=== PATIENT | female | born 1955 | race Caucasian/White ===

== ENCOUNTER 2018-10-04 13:33 | Inpatient (IN) | payer OTHER, MEDICARE ==
[2018-10-04] MEDS ORDERED: MAGNESIUM HYDROXIDE 30 ML UDCUP PO PRN (14:26)
[2018-10-04] MEDS ORDERED: MAG HYDROX/AL HYDROX/SIMETH 30 ML UDCUP PO PRN (14:26)
[2018-10-04] MEDS ORDERED: SUMAtriptan 25 MG TAB PO PRN (14:48)
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
[2018-10-04] MEDS ORDERED: BISACODYL 10 MG SUPP PR PRN (16:48)
[2018-10-04] MEDS ORDERED: MAGNESIUM CITRATE 300 ML BOTTLE PO ONE (16:48)
--- NOTE | 2018-10-04 18:18 | GCON ---
[f rep st] CONSULTATION DATE OF CONSULTATION: 10/04/2018 REASON FOR CONSULTATION: I was asked by Dr. Barahnoa to see the patient in regard to her medical problems. HISTORY OF PRESENT ILLNESS: This is a 62-year-old female with longstanding major depressive disorder, who underwent numerous social stressors over the last 4 months including losing her brother as well as her losing her dog to seizures who presents for ECT. She went to see her outpatient psychiatrist who referred her to see Dr. Barahona. She was admitted to the behavioral health unit today for this. In terms of her medical issues, she tells me that she has a history of hypertension which is usually reasonably well controlled on losartan. It does tend to be somewhat labile at times. Normally her blood pressure is around 120 or 130/80ish. She has a history of migraines for which she rarely takes Imitrex. This has not been a problem recently. I have also noted in her chart that she has hypercalcemia with a normal PTH in the past. She has complained of palpitations which started recently, these have been attributed to depression /anxiety. She has never had an event or Holter monitor. She will occasionally get episodes of hypoglycemia for which she eats to resolve these. She has never fainted. She has osteopenia, she is on Evista. She also suffers from constipation. She is currently quite constipated so much so that she is not able to eat due to nausea. She will often take a Dulcolax suppository at home for this. Her review of systems other than constipation is negative including no chest pain, shortness of breath. No exertional angina. No rash and no dysuria. PAST MEDICAL/SURGICAL HISTORY: 1. Hypertension. 2. Migraines. 3. Palpitations. 4. Depression. 5. Hypoglycemia. 6. Osteopenia. 7. Constipation. MEDICATIONS: Are listed in the medication reconciliation. This has been reviewed. ALLERGIES: Atropine,phenobarbital, scopolamine. FAMILY HISTORY: She has multiple family members with depression as well as suicide. SOCIAL HISTORY: She does not drink or smoke. She is . REVIEW OF SYSTEMS: A 10-point review of systems is negative except per HPI. PHYSICAL EXAM: VITAL SIGNS: Blood pressure 163/71, heart rate 74, respiration rate 14, saturating 94% on room air. Temperature 37. GENERAL: The patient is a pleasant female who is resting comfortably, in no acute distress. HEENT: Shows her to be normocephalic, atraumatic. CARDIOVASCULAR: Regular rate and rhythm. There are no murmurs, rubs, or gallops. No elevated JVD. No lower extremity edema. PULMONARY: Shows her to be breathing comfortably. Her lungs are clear to auscultation bilaterally. ABDOMEN: Exam shows normal bowel sounds. She is soft, nontender, nondistended. SKIN: No rash. : No Quinn. NEUROLOGIC: Shows her to be alert and oriented x3. Moving all extremities. PSYCHIATRIC: Exam shows normal mood and affect. LABS: There have been numerous labs ordered. However, these are pending at the time of my dictation. DATA: 1. I personally viewed and interpreted her EKG. This shows sinus rhythm. There are no ST changes. This is a normal EKG. 2. I reviewed her chart including her psychiatric assessment by Dr. Barahona. Notable for planning ECT. IMPRESSION AND PLAN: 1. Constipation: This is a long-term problem for her. I have given her multiple options including magnesium citrate, Fleet's enema as well as bisacodyl suppository. She may take these as needed. 2. Hypertension. Slightly elevated on presentation likely due to increased anxiety. Will continue her Cozaar while she is here. I would not adjust medications at this time unless she has very persistently elevated blood pressures. Thank you for involving Hospital Medicine in the care of this patient. If her labs come back abnormal, please alert the on-call physician. Otherwise, we will sign off and please re-consult as necessary. /[id number]/MODL MTDD
[2018-10-04] MEDS: DOCUSATE SODIUM 100 MG CAP PO SCH (20:08)
[2018-10-04] MEDS ORDERED: traMADol 50 MG TAB PO SCH (21:00)
[2018-10-04] MEDS: traZODone 50 MG TAB PO SCH (22:06)
[2018-10-04] MEDS: BISACODYL 5 MG EC TAB PO SCH (22:14)
--- NOTE | 2018-10-05 07:58 | ASMTBHMTP ---
Master Treatment Plan Master Treatment Plan Answers: Depressed Mood with for: Suicidal Ideation Date: 10/04/2018 Diagnosis on Admission: Major Depressive Disorder, Recurrent, Severe Expected length of stay: 3-5 days Reason for admission: Notes: Per Report: Patient is a 62 yoa female who was brought in today by her on referral of her psychiatrist (Atul Flores [phone]) who has recommended ECT for this patient. She lives in [place], [place] with and is retired. She is struggling to complete basic chores and ADLS at this point given her depressive state. 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 She has been hospitalized psychiatrically at least twice prior to this in 2006 and in the . She has had ECT twice before in 1993, and 2006, with good results. Patient's stated presenting problems: Notes: Treatment for severe depression Patient's goals for treatment: Notes: to get out of this depressive state and not think about dying all the time Patient's strengths: Notes: I have several Identify supports outside of hospital: Notes: family and friends, living in [place], [place] Discharge criteria: Notes: Suicidal ideation will resolve and patient will have a plan to safely manage recurrent suicidal ideation. Initial disposition plan/considerations: Notes: Return to [facility] after ECT tx. Master Treatment Plan Required Signatures Psychiatrist signature: Answers: Psychiatrist: RN on-shift signature: Answers: RN: Patient signature: Answers: Patient: Date Signed: 10/05/2018 07:57 AM Electronically Signed By:Arjun Gan
[2018-10-05 08:13] LABS: PLATELET COUNT 248 10^3/uL (150-400)
[2018-10-05] MEDS: LOSARTAN POTASSIUM 50 MG TAB PO SCH (08:42)
[2018-10-05] MEDS: ESCITALOPRAM OXALATE 10 MG TAB PO SCH (08:42)
[2018-10-05] MEDS: RALOXIFENE HCL 60 MG TAB PO SCH (08:42)
[2018-10-05] MEDS: DOCUSATE SODIUM 100 MG CAP PO SCH ×3 (11:32→21:30)
[2018-10-05] MEDS: PSYLLIUM METAMUCIL 1 PKT PO SCH ×2 (11:32→15:05)
--- NOTE | 2018-10-05 11:35 | SOAPPROG ---
SOAP Progress Note Assessment/Plan: Assessment: MDD with psychotic and melancholic fxs, HTN Plan: Read and appreciate consult of Dr Mireles, reviewed labs and EKG which Dr Mireles stated was normal to patient (not yet read). Reviewed with Pt further psychoed re ECT. She still wishes to start SHAREE and do bilateral, understanding the greater liability for cognitive impact. Pt describes further details of TC c/w somatic delusions (ie, blood draw infected her). She feels mentally "slowed down" and this is reflected in overt objectively noted vegatiative signs. Still c/o of constipation with no relief from Mag Citrate. Will order fleets enema. No significant issues from labs except mildly elevated LFTs. Will check FS pre ECT. encourage gatarode up to two hours prior to ECT and use D5NS if needed given her h/o of hypoglyemia 10/05/18 11:29 Objective: Vital Signs Temp Pulse Resp BP Pulse Ox 36.7 C 81 14 145/73 H 94 10/05/18 06:00 10/05/18 06:00 10/04/18 15:10 10/05/18 08:42 10/05/18 06:00 Laboratory Results 10/05/18 06:30 10/05/18 06:30 Laboratory Tests 10/05/18 10/05/18 06:30 06:30 Calcium 10.2 AST 50 H ALT 108 H Vitamin B12 Pending Vit D 1,25-Dihydroxy Pending Folate Pending TSH 0.911 MTHFR C677T Mutation Pending ICD10 Worksheet Patient Problems: Problems Problem Status Onset Major depression, melancholic type Acute - ICD10 Problem Qualifiers (1) Major depression, melancholic type
[2018-10-05] MEDS ORDERED: BISACODYL 10 MG SUPP PR ONE (11:36)
[2018-10-05] MEDS: traZODone 50 MG TAB PO PRN (13:40)
--- NOTE | 2018-10-05 14:47 | CPEKG ---
Test Reason : OPEN Blood Pressure : / mmHG Vent. Rate : 075 BPM Atrial Rate : 075 BPM P-R Int : 172 ms QRS Dur : 080 ms QT Int : 392 ms P-R-T Axes : 070 061 038 degrees QTc Int : 438 ms SINUS RHYTHM Confirmed by Armando Bernardo ([id number]) on 10/05/2018 2:46:58 PM Referred By: Lex Barahona Confirmed By:Armando Bernardo
[2018-10-05] MEDS: traZODone 50 MG TAB PO SCH (21:30)
[2018-10-06] MEDS ORDERED: CITRIC ACID/SODIUM CITRATE 30 ML UDCUP PO PRN (04:00)
[2018-10-06] MEDS ORDERED: NS 1,000 ML IV PRN (04:00)
[2018-10-06] MEDS ORDERED: ONDANSETRON DISINTEGRATING 4 MG TAB PO PRN (04:00)
[2018-10-06] MEDS: LOSARTAN POTASSIUM 50 MG TAB PO SCH (09:07)
--- NOTE | 2018-10-06 11:58 | PDHPUP ---
History & Physical Update H&P update statement: This history and physical update is based on an assessment of the patient which was completed after admission or registration (within 24 hours), but prior to the surgery/procedure. H&P update: H&P reviewed & patient examined, no change in patient's condition since H&P completed
[2018-10-06] MEDS ORDERED: ONDANSETRON DISINTEGRATING 4 MG TAB ONE (12:00)
[2018-10-06] MEDS ORDERED: CITRIC ACID/SODIUM CITRATE 30 ML UDCUP ONE (12:00)
[2018-10-06] MEDS ORDERED: LR 1,000 ML IV SCH (12:00)
--- NOTE | 2018-10-06 12:00 | PDANEPAE ---
ECT Pre Anesthetic Evaluation Allergies/Adverse Reactions: atropine [From ] Allergy (Verified 10/04/18 13:47) hyoscyamine [From ] Allergy (Verified 10/04/18 13:47) phenobarbital [From ] Allergy (Verified 10/04/18 13:47) scopolamine [From ] Allergy (Verified 10/04/18 13:47) Patient ID confirmed: Yes H&P reviewed: Yes Pre-anesthetic history reviewed: Yes Heart: regular rate and rhythym Lungs: no respiratory distress Mallampati Score: Class 1 ASA Status: II Home Medications: Medication Instructions Recorded B Cmplx 4/Vit D3/C/Folic/Zinc 1 each PO DAILY 10/04/18 [Vital-D Rx Tablet] Bisacodyl [Bisacodyl (*)] 5 mg PO Q48H 10/04/18 Escitalopram Oxalate [Lexapro] 10 mg PO DAILY 10/04/18 Losartan Potassium [Cozaar 50 mg 50 mg PO DAILY 10/04/18 (*)] Raloxifene HCl [Evista 60mg (RX)] 60 mg PO DAILY 10/04/18 Sumatriptan Succinate [Imitrex] 50 mg PO PRN PRN 10/04/18 traZODone [traZODONE 50MG (*)] 25 mg PO QID PRN 10/04/18 traZODone [traZODONE 50MG (*)] 75 mg PO HS 10/04/18 Medication review: completed Patient interviewed: Yes Patient examined: Yes Anesthetic plan discussed with patient: Yes Anesthetic risks discussed with patient: Yes ECT Pre-Anesthetic History - Height & Weight Height: 165.1 cm Weight: 55.338 kg BMI: 20.30 - Anesthesia History Hx Anesthesia Complications (with details): None Family Hx Anesthesia Complications: None - Medications In the Past 6 Months the Patient Has Taken: Tranquilizers, Blood Pressure Medication - Tobacco/Alcohol/Drug Use Smoking Status: Never smoked Hx Drug/Substance Abuse: No Alcohol Use: No - Prior Surgeries/Hospitalizations Prior Surgeries: None Prior Medical Hospitalizations: None - Pulmonary History ECT Hx Asthma: No Hx Abnormal Chest X-Ray: No Hx Oxygen in Use at Home: No - Cardiovascular History Hx Hypertension: Yes Currently Uses Hypertension Medication: Yes Hx Arrhythmias: No Hx Palpitations: Yes Hx Chest Pain: No Hx Coronary Artery / Peripheral Vascular Disease: No Hx Blood Clot: No - Neurologic History Hx Cerebrovascular Accident: No Hx CT Scan Or MRI Of The Brain: No Hx Epilepsy, Convulsions, Seizures, Or Blackouts: No Hx Frequent Or Severe Headaches: Yes Hx Numbness: No Hx Neurologic Disorder: No - Dental History Current Dental Issues: Other Dental History Comment: 2 crowns - Endocrine History Hx Diabetes: No Current Daily Insulin Injections: No Endocrine History Comment: hypercalcemia, hypoglycemia - Renal/Urologic History Hx Renal Disorders: No Hx Urinary Tract Problems: No - Liver History Hx Hepatic Disorders: No - Cancer History Hx Cancer: No - Hematology History Hx Unexplained Bleeding Of Any Type: No Hx Ease Of Bruising: No Hx Anemia: No - Gastrointestinal History Hx Gastroesophogeal Reflux Disease: No Hx Ulcers: No Hx Hiatal Hernia: No Hx Difficulty Swallowing: No - Musculoskeletal Hisory Hx Chronic Pain: No Hx Arthritis: No - Opthalmic History Hx Glaucoma: No Hx Opthalmic Disorders: No - Other Health History Physical Disabililty: No Recent Cough, Cold, or Fever: No Significant Weight Loss In The Last 4 Months: No Possible the Patient Might be : No
[2018-10-06] MEDS ORDERED: MIDAZOLAM 2 MG/2 ML VIAL ONE (12:16)
[2018-10-06] MEDS ORDERED: fentaNYL 100 MCG/2 ML INJ ONE (12:16)
[2018-10-06] MEDS ORDERED: KETOROLAC 30 MG/1 ML SDV ONE (12:17)
[2018-10-06] MEDS ORDERED: SUCCINYLCHOLINE CHLORIDE 200 MG/10 ML VIAL ONE (12:17)
[2018-10-06] MEDS ORDERED: METHOHEXITAL SODIUM 100 MG/10 ML SYR IVP ONE (12:17)
--- NOTE | 2018-10-06 13:04 | PDECTPN ---
ECT Progress Note Patient Problems: Problems Problem Status Onset Code Major depression, melancholic type Acute F32.9 Date: 10/06/18 Treatment#: 1 ECT provider: Lex Barahona Anesthesia: Brett Modi Stimulus dose (%): 30 Pulse width: 0.5 ECT EMG (sec): 42 ECT EEG (sec): 68 ECT treatment type: bilateral QIDS-SR Total Score: 23 QIDS-SR Question #12 Score: 2 MMSE Total Score (Max = 21): 20 Next ECT date: 10/08/18 O/P psychiatrist follow up with : Keri Flores O/P psychiatrist follow up: phone, voice message Home medications: Medication Instructions Recorded B Cmplx 4/Vit D3/C/Folic/Zinc 1 each PO DAILY 10/04/18 [Vital-D Rx Tablet] Bisacodyl [Bisacodyl (*)] 5 mg PO Q48H 10/04/18 Escitalopram Oxalate [Lexapro] 10 mg PO DAILY 10/04/18 Losartan Potassium [Cozaar 50 mg 50 mg PO DAILY 10/04/18 (*)] Raloxifene HCl [Evista 60mg (RX)] 60 mg PO DAILY 10/04/18 Sumatriptan Succinate [Imitrex] 50 mg PO PRN PRN 10/04/18 traZODone [traZODONE 50MG (*)] 25 mg PO QID PRN 10/04/18 traZODone [traZODONE 50MG (*)] 75 mg PO HS 10/04/18 Current treatment plan: acute phase Treatment plan frequency: 3 times per week ECT narrative: EGK wnl. QTc wnl. Labs n/c. Pt still consenting to initiate B ECT today. SPokek with as well who agrees. Used brevital, versed 1 mg and fentanyl. Pt was slow to arouse post treatment, prompting MD and anesthesia to consider holding versed and reducing brevital dose. Had excellent seizure. Will possibly discharge to 's strict 24/7 care by tomorrow. On MSE, she remains with severe vegatiative signs, slowing of mentation and movement, impov speech, monotone. fair eye contact pleading quality to her asking MD, "will I ever get better?". Still with somatic delusional material, and a sense of futility and helplessness that is delusional in intensity. Will attempt to augment her regimen with an AAP, such as abilify or rexulti given that these are FDA approved for this reason, AND she has a delusional depression, in my opinion.
[2018-10-06] MEDS: DOCUSATE SODIUM 100 MG CAP PO SCH ×2 (13:53→21:45)
[2018-10-06] MEDS: PSYLLIUM METAMUCIL 1 PKT PO SCH (13:53)
--- NOTE | 2018-10-06 14:02 | POSTANESTH ---
Post Anesthetic Evaluation Cardiovascular Status: Normal, Stable Respiratory Status: Normal, Stable Level of Consciousness/Mental Status: Can Participate in Eval Pain Control: Adequate, Prn Tx Ordered Nausea/Vomiting Control: Adequate, Prn Tx Ordered Complications Possibly Related to Anesthesia: None Noted
[2018-10-06] MEDS: ESCITALOPRAM OXALATE 10 MG TAB PO SCH (14:55)
[2018-10-06] MEDS: RALOXIFENE HCL 60 MG TAB PO SCH (14:55)
[2018-10-06] MEDS: traZODone 50 MG TAB PO PRN (14:59)
[2018-10-06] MEDS: BREXPIPRAZOLE 1 MG TAB PO SCH (21:45)
[2018-10-06] MEDS: BISACODYL 5 MG EC TAB PO SCH (21:45)
[2018-10-06] MEDS: traZODone 50 MG TAB PO SCH (21:45)
[2018-10-07] MEDS: LOSARTAN POTASSIUM 50 MG TAB PO SCH (09:44)
[2018-10-07] MEDS: LORazepam 0.5 MG TAB PO PRN ×2 (09:44→22:14)
[2018-10-07] MEDS: ESCITALOPRAM OXALATE 10 MG TAB PO SCH (09:44)
[2018-10-07] MEDS: DOCUSATE SODIUM 100 MG CAP PO SCH ×2 (09:44→20:50)
[2018-10-07] MEDS: RALOXIFENE HCL 60 MG TAB PO SCH (09:44)
[2018-10-07] MEDS: PSYLLIUM METAMUCIL 1 PKT PO SCH (09:45)
--- NOTE | 2018-10-07 12:21 | SOAPPROG ---
SOAP Progress Note Assessment/Plan: Assessment: MDD with psychotic and melancholic fxs, HTN Plan: Read and appreciate consult of Dr Mireles, reviewed labs and EKG which Dr Mireles stated was normal to patient (not yet read). Reviewed with Pt further psychoed re ECT. She still wishes to start SHAREE and do bilateral, understanding the greater liability for cognitive impact. Pt describes further details of TC c/w somatic delusions (ie, blood draw infected her). She feels mentally "slowed down" and this is reflected in overt objectively noted vegatiative signs. Still c/o of constipation with no relief from Mag Citrate. Will order fleets enema. No significant issues from labs except mildly elevated LFTs. Will check FS pre ECT. encourage gatarode up to two hours prior to ECT and use D5NS if needed given her h/o of hypoglyemia 10/05/18 11:29 10/07/18 12:17 Pt is s/p ECT #1. No significant SEs. No POTTS or N/V. Feels slightly less dysphoric and oppressive in her mood, but still having catastrophic rumination/ nihilisim/futility/somatic concerns as themes in her thought content. Yet, she catches herself smiling and even briefly laughing,with some surprise. Objectively,, she does look a bit less anxious, agitated, tense, internally preoccupied. Still needs to stand during interview. Still "scared" and sees that "everything (negative) is magnified". Will use Fleets enema again as some benefit yesterday. Met with today. Likely d/c tomorrow, assuming no untoward effect and on going forward movement. Objective: Vital Signs Temp Pulse Resp BP Pulse Ox 36.8 C 80 16 131/61 H 93 10/07/18 06:00 10/07/18 06:00 10/07/18 06:00 10/07/18 09:44 10/07/18 06:00 Laboratory Results 10/05/18 06:30 10/05/18 06:30 10/06/18 10/07/18 10/08/18 05:59 05:59 05:59 Intake Total 930 Balance 930 ICD10 Worksheet Patient Problems: Problems Problem Status Onset Major depression, melancholic type Acute
--- NOTE | 2018-10-07 12:54 | ASMTCMCOM ---
CM Note CM Note Notes: The patient plans to stay inpatient through her next ECT appointment. The patient will re-evaluate her discharge plan with the provider. She denies any improvement in her mood or symptoms although she was observed "smiling" when interacting with staff. Date Signed: 10/07/2018 12:51 PM Electronically Signed By:Lizabeth Ponce
[2018-10-07] MEDS: traZODone 50 MG TAB PO SCH (20:49)
[2018-10-07] MEDS: BREXPIPRAZOLE 1 MG TAB PO SCH (20:50)
[2018-10-08] MEDS: DOCUSATE SODIUM 100 MG CAP PO SCH (08:30)
[2018-10-08] MEDS: ESCITALOPRAM OXALATE 10 MG TAB PO SCH (08:31)
[2018-10-08] MEDS: RALOXIFENE HCL 60 MG TAB PO SCH (08:31)
[2018-10-08] MEDS: LOSARTAN POTASSIUM 50 MG TAB PO SCH (08:31)
[2018-10-08] MEDS: PSYLLIUM METAMUCIL 1 PKT PO SCH (13:08)
[2018-10-08] MEDS ORDERED: ONDANSETRON DISINTEGRATING 4 MG TAB ONE (13:09)
[2018-10-08] MEDS ORDERED: CITRIC ACID/SODIUM CITRATE 30 ML UDCUP ONE (13:09)
[2018-10-08] MEDS ORDERED: ONDANSETRON DISINTEGRATING 4 MG TAB PO PRN (13:18)
[2018-10-08] MEDS ORDERED: CITRIC ACID/SODIUM CITRATE 30 ML UDCUP PO ONE (13:18)
[2018-10-08] MEDS ORDERED: MIDAZOLAM 2 MG/2 ML VIAL ONE (13:19)
[2018-10-08] MEDS ORDERED: SUCCINYLCHOLINE CHLORIDE 200 MG/10 ML VIAL ONE (13:19)
[2018-10-08] MEDS ORDERED: KETOROLAC 30 MG/1 ML SDV ONE (13:19)
[2018-10-08] MEDS ORDERED: GLYCOPYRROLATE 0.2 MG/1 ML VIAL ONE (13:19)
[2018-10-08] MEDS ORDERED: ROCURONIUM 50 MG/5 ML VIAL ONE (13:19)
[2018-10-08] MEDS ORDERED: fentaNYL 100 MCG/2 ML INJ ONE (13:19)
[2018-10-08] MEDS ORDERED: METHOHEXITAL SODIUM 100 MG/10 ML SYR IVP ONE (13:19)
--- NOTE | 2018-10-08 13:21 | ASMTBHDC ---
Notes Note: Notes: The patient participated in clinical treatment team rounds. She was engaged and appropriate. She presents with sad mood, tearful, and intrusive thinking. She reported that she is "hopeful" that she will continue to improve upon discharge. The patient contemplated whether to stay in the hospital for the remainder of her acute ECT treatments and expressed fear of relapse. She discussed with staff whether her plan for discharge is premature. She reported that her depression is like a "metal plate, lying heavy in the head" and that the "heaviness lifted" following her recent ECT treatment. Date Signed: 10/08/2018 01:21 PM Electronically Signed By:Lizabeth Ponce
[2018-10-08] MEDS ORDERED: D5W LR 1,000 ML IV SCH (13:30)
[2018-10-08] MEDS ORDERED: PROMETHAZINE HCL 25 MG TAB PO PRN (13:33)
[2018-10-08] MEDS ORDERED: NALOXONE HCL 0.4 MG/ML INJ IVP PRN (13:33)
[2018-10-08] MEDS ORDERED: HYDROCODONE/APAP 5/325 TAB PO PRN (13:33)
--- NOTE | 2018-10-08 13:33 | PDECTPN ---
ECT Progress Note Patient Problems: Problems Problem Status Onset Code Major depression, melancholic type Acute F32.9 Date: 10/08/18 Treatment#: 2 ECT provider: Lex Barahona Stimulus dose (%): 35 Pulse width: 0.5 ECT EMG (sec): 43 ECT EEG (sec): 106 ECT treatment type: bilateral QIDS-SR Total Score: 17 QIDS-SR Question #12 Score: 0 MMSE Total Score (Max = 21): 19 Next ECT date: 10/11/18 Next ECT time: 13:00 O/P psychiatrist follow up with : Keri Flores O/P psychiatrist follow up: phone, voice message Home medications: Medication Instructions Recorded B Cmplx 4/Vit D3/C/Folic/Zinc 1 each PO DAILY 10/04/18 [Vital-D Rx Tablet] Bisacodyl [Bisacodyl (*)] 5 mg PO Q48H 10/04/18 Escitalopram Oxalate [Lexapro] 10 mg PO DAILY 10/04/18 Losartan Potassium [Cozaar 50 mg 50 mg PO DAILY 10/04/18 (*)] Raloxifene HCl [Evista 60mg (RX)] 60 mg PO DAILY 10/04/18 Sumatriptan Succinate [Imitrex] 50 mg PO PRN PRN 10/04/18 traZODone [traZODONE 50MG (*)] 25 mg PO QID PRN 10/04/18 traZODone [traZODONE 50MG (*)] 75 mg PO HS 10/04/18 Current treatment plan: acute phase Treatment plan frequency: 3 times per week ECT narrative: 10/06/18 EGK wnl. QTc wnl. Labs n/c. Pt still consenting to initiate B ECT today. SPokek with as well who agrees. Used brevital, versed 1 mg and fentanyl. Pt was slow to arouse post treatment, prompting MD and anesthesia to consider holding versed and reducing brevital dose. Had excellent seizure. Will possibly discharge to 's strict 24/7 care by tomorrow. On MSE, she remains with severe vegatiative signs, slowing of mentation and movement, impov speech, monotone. fair eye contact pleading quality to her asking MD, "will I ever get better?". Still with somatic delusional material, and a sense of futility and helplessness that is delusional in intensity. Will attempt to augment her regimen with an AAP, such as abilify or rexulti given that these are FDA approved for this reason, AND she has a delusional depression, in my opinion. 10/08/18 Pt has had a nice decrease in QIDS (23/2 to 17/0) yet pt does not acknowledge much subjective change yet,and still experiences near continuous negative rumination. She has an excellent support system in her so I feel she can proceed as outpt if she wishes after today. Will provide samples of rexulti
[2018-10-08 15:50] VITALS: BP 170/80
--- NOTE | 2018-10-08 20:03 | GDS ---
[f rep st] DISCHARGE SUMMARY IDENTIFYING DATA: The patient is a 62-year-old white female brought in by her on ref erral of her psychiatrist, Atul Flores, who has recommended electroconvulsive therapy for her. Adolfo chong lives in [place] with her and is a retired nurse. She has 2 prior psychiatric hospita lizations and has had ECT twice before with good results. REASON FOR ADMISSION: The patient presents with a many-month history of severe exacerbation of a rec urrent major depressive disorder proving refractory to medication trials. She has severe vegetative symptoms consistent with melancholic depression and even some delusional material with themes in the somatic realm as well as nihilism and futility. Routine physical exam performed by Will Mireles which describes: 1. Constipation: This is a long-term problem for her. I have given her multiple options, including magnesium citrate, Fleet enema, as well as bisacodyl suppository. She may take these as needed. 2. Hypertension: Slightly elevated on presentation, likely due to increased anxiety. We will naga nue her Cozaar while she is here. I would not adjust medication at this time unless she is very pers istently elevated in blood pressure. ROUTINE LAB RESULTS AND OTHER FINDINGS: The patient's EKG read by Armando Bernardo showed normal sinus rh ythm with a QTc of 438. CBC was within normal limits. Biochem profile was normal, with the exceptio n of slightly elevated liver function tests with an AST of 50 and ALT of 108. Highly sensitive C-damien ctive protein was 0.3. B12 level was 735. Folate level was greater than 20. TSH was normal at 0.91 1. Urinalysis was negative. MTHFR [id number] mutation was heterozygous. HOSPITAL COURSE: The patient and were given psychoeducation, including risks, benefits, and alternatives regarding electroconvulsive therapy. She provided her informed consent to start bilater al ECT. The plan was to keep her medications unchanged initially, although certain things prompted opal chong to make certain changes. For instance, she was complaining of tachycardia, which could indeed be a n indirect side effect of the alpha blocking effects of trazodone. She was using this medication in the dose of 75 mg at h.s. and 25 mg at least once or twice per day for anxiety. I reduced her trazod one nighttime dose to 50 mg and switched the p.r.n. to lorazepam 0.25 mg every 6 hours. She gave her informed consent as well to add Rexulti 0.5 mg q.h.s. to augment her antidepressant. She underwent 2 bilateral ECT treatments. Even after a single treatment, her QIDS score dropped from 23 to 17, an d her score on question #12 pertaining to suicidality dropped from 2 to 0. She had a light brighteni ng of affect and decrease in the life-threatening symptom of suicidality, but subjectively she still felt very depressed, with near-continuous nihilistic and self-deprecating rumination. Her seizures w ere technically excellent, and she had minimal posttreatment side effects such as headache or nausea. She developed no clear side effects with the initial introduction of Rexulti, such as akathisia, ov er-sedation, or dystonic reaction. DISCHARGE MEDICATION: Rexulti 0.5 mg p.o. q.h.s., Lexapro 10 mg p.o. q.h.s., [place] 5/325 one tablet every 8 hours as needed for headache on treatment days only, Phenergan 25 mg 1 tablet p.o. q.6 hours p.r.n. nausea on treatment day only, lorazepam 0.25 mg p.o. q.6 hours p.r.n. severe anxiety, losartan 50 mg p.o. daily, Evista 60 mg p.o. daily, trazodone 50 mg p.o. q.h.s., Imitrex 50 mg p.o. p.r.n. mi graine, B complex, vitamin D3, E, folic acid, and zinc 1 tablet p.o. daily. DISPOSITION: The patient will return home with her , who will provide the requisite 24/7 supe rvision. He is to allow no driving. He should hold onto and dispense her medications. All potentia l means of self-harm should be removed from her access, such as firearms, sharp objects, pills, or ca r keys. DISCHARGE DIAGNOSIS: [place] I: Major depressive disorder, recurrent, severe, with melancholic and psy chotic features, hypertension, hypoglycemia, rare migraine headaches, and variable calcium levels by history. /[id number]/MODL
== END 2018-10-08 17:20 | disposition home or self-care (01) | DRG 885 ==
LOC: BBEH 13:45
PROVIDERS: ADMIT Psychiatry & Neurology Psychiatry; ATTEND Psychiatry & Neurology Psychiatry
PROC: GZB2ZZZ Electroconvulsive Therapy, Bilateral-Single Seizure (ICD-10-PCS; principal; 2018-10-06)
DX: F33.3 Major depressive disorder, recurrent, severe with psychotic symptoms (principal); K59.00 Constipation, unspecified; I10 Essential (primary) hypertension; E16.2 Hypoglycemia, unspecified; G43.909 Migraine, unspecified, not intractable, without status migrainosus
CPT/HCPCS: 81291-90; 82607-90; 82652-90; 86141-90; J0330; J1885; J2250; J3010